=== PATIENT | male | born 1940 | race Caucasian/White ===

== ENCOUNTER 2017-04-11 16:13 | Emergency (ER) | payer OTHER ==
[~2017-04-11] VITALS: Ht 172.7 cm; Wt 90.0 kg
[2017-04-11] MEDS ORDERED: HYDROmorphone 1 MG/ML, 1ML ONE ×2 (16:38→17:26)
[2017-04-11] MEDS ORDERED: ONDANSETRON 2MG/ML, 2ML ONE (16:38)
[2017-04-11] MEDS ORDERED: KETOROLAC 30 MG/1 ML ONE (16:38)
[2017-04-11] MEDS: HYDROmorphone 1 MG/ML, 1ML IVPush PRN ×2 (16:41→17:30)
[2017-04-11] MEDS ORDERED: ALLO300T PO (16:48)
[2017-04-11] MEDS ORDERED: ATEN25TA PO (16:48)
[2017-04-11 16:58] LABS: BLOOD UREA NITROGEN 22 mg/dL (7-18)
[2017-04-11] MEDS ORDERED: SODIUM CHLORIDE FLUSH 10ML SYR IVF ONE (17:00)
[2017-04-11] MEDS ORDERED: SODIUM CHLORIDE 0.9% 1,000ML IVBOLUS ONE (17:00)
[2017-04-11] MEDS ORDERED: KETOROLAC 30 MG/1 ML IVPush ONE (17:00)
[2017-04-11] MEDS ORDERED: ONDANSETRON 2MG/ML, 2ML IVPush ONE (17:00)
[2017-04-11 17:02] LABS: ASPARTATE AMINO TRANSFERASE 21 U/L (15-37)
[2017-04-11] MEDS ORDERED: MORPHINE SULFATE 4 MG/ML, 1ML ONE (18:16)
[2017-04-11] MEDS ORDERED: GADOBUTROL 10 MMOL/10 ML PFS ONE (18:18)
[2017-04-11] MEDS ORDERED: MORPHINE SULFATE 4 MG/ML, 1ML IVPush PRN (18:30)
[2017-04-11 20:49] VITALS: BP 101/59
== END 2017-04-11 20:51 | disposition home or self-care (01) ==
LOC: ED 17:08
DX: M54.16 Radiculopathy, lumbar region (principal)
CPT/HCPCS: 36415; 72158; 74176; 80053; 85025; 96361; 96374; 96375; 96376; 99285; A9585; J1170; J1885; J2405; J7030

== ENCOUNTER → 2017-09-25 | Outpatient (CLI) | payer OTHER ==
[~2017-09-25] MED LIST: ALLO300T PO; ATEN25TA PO; REGADENOSON 0.4 MG/5 ML SYRINGE ONE
== END | disposition home or self-care (01) ==
LOC: CFH 07:07
PROVIDERS: ATTEND Internal Medicine Cardiovascular Disease
DX: I71.4 Abdominal aortic aneurysm, without rupture (principal); I10 Essential (primary) hypertension
CPT/HCPCS: 78452; 93017; 93306; 93978; A9502; J2785

== ENCOUNTER 2017-10-11 10:19 | Day surgery (SDC) | payer OTHER ==
[~2017-10-11] VITALS: Ht 172.7 cm; Wt 96.4 kg
[~2017-10-11 10:19] MED LIST changes: -REGADENOSON 0.4 MG/5 ML SYRINGE ONE
[2017-10-11 11:01] VITALS: BP 116/80
[2017-10-11] MEDS ORDERED: APIX5TAB PO (11:20)
[2017-10-11] MEDS ORDERED: DOXA2TAB9 PO (11:20)
[2017-10-11] MEDS ORDERED: DICL2SOL TP (11:20)
[2017-10-11] MEDS ORDERED: SULF-169 PO (11:20)
[2017-10-11] MEDS ORDERED: VIT1TABL32 PO (11:20)
[2017-10-11 11:21] LABS: ANION GAP 9 mmol/L (5-15); CALCIUM 8.6 mg/dL (8.5-10.1); CHLORIDE 110 mmol/L (98-107)
[2017-10-11] MEDS ORDERED: ATEN25TA PO (12:26)
== END 2017-10-11 14:34 ==
LOC: CACL 10:19
PROVIDERS: ATTEND Internal Medicine Cardiovascular Disease
DX: I48.91 Unspecified atrial fibrillation (principal); I10 Essential (primary) hypertension; E78.5 Hyperlipidemia, unspecified; I25.10 Atherosclerotic heart disease of native coronary artery without angina pectoris; Z79.82 Long term (current) use of aspirin; Z88.6 Allergy status to analgesic agent
CPT/HCPCS: 36415; 80048; 92960

== ENCOUNTER → 2018-03-01 | Outpatient (CLI) | payer OTHER ==
[~2018-03-01] MED LIST changes: +APIX5TAB PO; +ASPI-496 PO; +DICL2SOL TP; +DIGO125T PO; +DOXA2TAB9 PO; +SULF-169 PO; +VIT1TABL32 PO
[2018-03-01 11:51] LABS: INTERNATIONAL NORMALIZED RATIO 1.09 (0.93-1.1); PROTHROMBIN TIME 11.3 Seconds (9.6-11.5)
[2018-03-01 11:56] LABS: ALANINE AMINOTRANSFERASE 27 U/L (12-78); ALBUMIN 3.7 g/dL (3.4-5.0); ANION GAP 8 mmol/L (5-15); CALCIUM 8.4 mg/dL (8.5-10.1); CHLORIDE 110 mmol/L (98-107)
[2018-03-01 11:59] LABS: ALKALINE PHOSPHATASE 61 U/L (45-117)
[2018-03-01 12:10] LABS: BASOPHILS # (AUTO) 0.01 x10^3/uL (0-0.1); BASOPHILS % (AUTO) 0 % (0-1); EOSINOPHILS # (AUTO) 0.06 x10^3/uL (0-0.4); EOSINOPHILS % (AUTO) 1 % (1-7); LYMPHOCYTES # (AUTO) 1.45 x10^3/uL (1-3.4); LYMPHOCYTES % (AUTO) 22 % (22-44); MD NO; MEAN CORPUSCULAR HEMOGLOBIN 30.2 pg (27.5-34.5); MEAN CORPUSCULAR HGB CONC 33.3 g/dL (33.2-36.2); MEAN CORPUSCULAR VOLUME 90.9 fL (81-97); MEAN PLATELET VOLUME 8.8 fL (7.4-10.4); MONOCYTES # (AUTO) 0.55 x10^3/uL (0.2-0.8); MONOCYTES % (AUTO) 8 % (2-9); NEUTROPHILS # (AUTO) 4.66 x10^3/uL (1.8-6.8); NEUTROPHILS % (AUTO) 69 % (42-75); PLATELET COUNT 170 x10^3/uL (130-400); RED BLOOD COUNT 5.56 x10^6/uL (4.38-5.82); RED CELL DISTRIBUTION WIDTH 15.5 % (9.4-14.8)
== END ==
LOC: STAR 10:34
PROVIDERS: ATTEND Internal Medicine Cardiovascular Disease
DX: Z01.818 Encounter for other preprocedural examination (principal)
CPT/HCPCS: 36415; 71046; 80053; 85025; 85610

== ENCOUNTER 2018-03-06 08:31 | Observation (INO) | payer OTHER ==
[2018-03-01 11:10] VITALS: BP 130/85
[~2018-03-06] VITALS: Ht 172.7 cm; Wt 97.2 kg
[2018-03-06] MEDS ORDERED: LIDOCAINE/PF 1%, 30ML ONE (08:58)
[2018-03-06] MEDS ORDERED: MIDAZOLAM 1 MG/ML, 5ML ONE (08:58)
[2018-03-06] MEDS ORDERED: FENTANYL PF 100 MCG/2ML ONE (08:58)
[2018-03-06] MEDS ORDERED: CEFAZOLIN PMX 1GM/50ML 50 ML ONE (08:58)
[2018-03-06] MEDS ORDERED: CEFAZOLIN 1,000 MG ONE (08:58)
[2018-03-06] MEDS ORDERED: SODIUM CHLORIDE 0.9% 1,000 ML IV SCH (09:06)
[2018-03-06] MEDS ORDERED: SULF1TAB24 PO (09:20)
[2018-03-06] MEDS ORDERED: CEFAZOLIN PMX 1GM/50ML 50 ML IVPB ONE (09:30)
[2018-03-06] MEDS ORDERED: ACETAMINOPHEN 325 MG TABLET PO PRN (10:30)
[2018-03-06 10:58] VITALS: BP 118/75
[2018-03-06 14:00] VITALS: BP 118/83
[2018-03-06] MEDS ORDERED: CEFAZOLIN PMX 1GM/50ML 50 ML IVPB SCH (15:00)
[2018-03-06] MEDS: OXYcodone IR 5MG TABLET PO PRN (18:07)
[2018-03-06 19:37] VITALS: BP 136/78
[2018-03-06] MEDS: ATENOLOL 25 MG TABLET PO SCH (21:44)
[2018-03-06] MEDS: SODIUM CHLORIDE FLUSH 10ML SYR IVF SCH (21:44)
[2018-03-06 23:57] VITALS: BP 139/84
[2018-03-07] MEDS: OXYcodone IR 5MG TABLET PO PRN (00:39)
[2018-03-07] MEDS ORDERED: CEFAZOLIN 1,000 MG in SODIUM CHLORIDE 0.9% 50 ML IVPB SCH (01:00)
[2018-03-07 07:47] VITALS: BP 156/83
[2018-03-07] MEDS ORDERED: TEMPLATE NON-FORMULARY MED. (Vit A,C & E/Lutein/Minerals** (Ocuvite Tablet**) 1 TAB) PO SCH (09:00)
[2018-03-07] MEDS ORDERED: ASPIRIN 81 MG TABLET EC PO SCH (09:00)
[2018-03-07] MEDS ORDERED: DOXAZOSIN 2MG TABLET PO SCH (09:00)
[2018-03-07] MEDS ORDERED: ALLOPURINOL 300 MG TABLET PO SCH (09:00)
[2018-03-07] MEDS ORDERED: SULFAMETH./TRIMETHOPRIM DS 800MG/160MG TABLET PO SCH (09:00)
[2018-03-07] MEDS ORDERED: DIGOXIN 0.125 MG TABLET PO SCH (09:00)
[2018-03-07] MEDS: ATENOLOL 25 MG TABLET PO SCH (09:04)
[2018-03-07] MEDS: SODIUM CHLORIDE FLUSH 10ML SYR IVF SCH (09:04)
== END 2018-03-07 10:40 | disposition home or self-care (01) ==
LOC: CACL 08:31 → ORIP 10:22 → 5SO 10:46 → DCLOUNGE 03-07 10:20
PROVIDERS: ADMIT Internal Medicine Cardiovascular Disease; ATTEND Internal Medicine Cardiovascular Disease
DX: I49.5 Sick sinus syndrome (principal); I48.91 Unspecified atrial fibrillation; I10 Essential (primary) hypertension; E78.5 Hyperlipidemia, unspecified
CPT/HCPCS: 33207; 71045; 96365; 96375; 99156; C1779; C1786; G0378; J0690; J2250; J3010; J3490

== ENCOUNTER 2018-05-24 05:59 | Observation (INO) | payer OTHER ==
[2018-05-23 10:34] VITALS: BP 122/78
[2018-05-23 11:03] LABS: BASOPHILS # (AUTO) 0.02 x10^3/uL (0-0.1); BASOPHILS % (AUTO) 0 % (0-1); EOSINOPHILS # (AUTO) 0.11 x10^3/uL (0-0.4); EOSINOPHILS % (AUTO) 2 % (1-7); LYMPHOCYTES % (AUTO) 21 % (22-44); MD NO; MEAN CORPUSCULAR HEMOGLOBIN 30.3 pg (27.5-34.5); MEAN PLATELET VOLUME 8.3 fL (7.4-10.4); MONOCYTES # (AUTO) 0.74 x10^3/uL (0.2-0.8); MONOCYTES % (AUTO) 10 % (2-9); NEUTROPHILS # (AUTO) 5.07 x10^3/uL (1.8-6.8); NEUTROPHILS % (AUTO) 67 % (42-75); PLATELET COUNT 160 x10^3/uL (130-400); RED BLOOD COUNT 5.43 x10^6/uL (4.38-5.82); RED CELL DISTRIBUTION WIDTH 15.9 % (9.4-14.8)
[2018-05-23 11:08] LABS: ANION GAP 8 mmol/L (5-15); CALCIUM 8.6 mg/dL (8.5-10.1); CHLORIDE 111 mmol/L (98-107); CREATININE 1.25 mg/dL (0.7-1.3)
[~2018-05-24] VITALS: Ht 172.7 cm; Wt 98.5 kg
[~2018-05-24 05:59] MED LIST changes: +METO50TA4 PO; +SULF1TAB24 PO
[2018-05-24] MEDS ORDERED: SODIUM CHLORIDE 0.9% 1,000 ML IV SCH (06:07)
[2018-05-24] MEDS ORDERED: TIZA4CAP PO (06:28)
[2018-05-24] MEDS ORDERED: ZOLPIDEM 5MG TABLET PO PRN ×2 (06:30→10:00)
[2018-05-24] MEDS ORDERED: ONDANSETRON 2MG/ML, 2ML IVPush PRN (06:30)
[2018-05-24] MEDS ORDERED: MIDAZOLAM 1 MG/ML, 5ML ONE (07:52)
[2018-05-24] MEDS ORDERED: LIDOCAINE 2%, 50ML ONE (07:52)
[2018-05-24] MEDS ORDERED: FENTANYL PF 100 MCG/2ML ONE (07:52)
[2018-05-24] MEDS ORDERED: TIZANIDINE 4MG TABLET PO PRN (10:00)
[2018-05-24] MEDS ORDERED: ACETAMINOPHEN 325 MG TABLET PO PRN (10:00)
[2018-05-24 10:08] VITALS: BP 123/85
[2018-05-24] MEDS ORDERED: ETODOLAC 200 MG CAPSULE PO PRN (10:30)
[2018-05-24] MEDS ORDERED: ETOD-95 PO (10:31)
[2018-05-24 14:25] VITALS: BP 122/86
[2018-05-24 19:01] VITALS: BP 112/76
[2018-05-24] MEDS: METOPROLOL SUCCINATE 50 MG TAB.ER.24H PO SCH (20:07)
[2018-05-24] MEDS ORDERED: DOXAZOSIN 2MG TABLET PO SCH (21:00)
[2018-05-25 01:16] VITALS: BP 122/81
[2018-05-25 07:49] VITALS: BP 133/92
[2018-05-25] MEDS: METOPROLOL SUCCINATE 50 MG TAB.ER.24H PO SCH (07:57)
[2018-05-25] MEDS ORDERED: METO50TA4 PO (08:50)
[2018-05-25] MEDS ORDERED: MULTIVITAMINS/MINERALS TABLET PO SCH (09:00)
[2018-05-25] MEDS ORDERED: DIGOXIN 0.125 MG TABLET PO SCH (09:00)
[2018-05-25] MEDS ORDERED: SULFAMETH./TRIMETHOPRIM DS 800MG/160MG TABLET PO SCH (09:00)
[2018-05-25] MEDS ORDERED: ASPIRIN 81 MG TABLET EC PO SCH (09:00)
[2018-05-25] MEDS ORDERED: ALLOPURINOL 300 MG TABLET PO SCH (09:00)
== END 2018-05-25 13:09 | disposition home or self-care (01) ==
LOC: CACL 05:59 → 5SO 09:56
PROVIDERS: ADMIT Internal Medicine Cardiovascular Disease; ATTEND Internal Medicine Cardiovascular Disease
DX: I48.0 Paroxysmal atrial fibrillation (principal); I44.2 Atrioventricular block, complete; I10 Essential (primary) hypertension; Z95.0 Presence of cardiac pacemaker
CPT/HCPCS: 36415; 71046; 80048; 85025; 93650; 99156; 99157; C1766; C1894; C2630; G0378; J2250; J3010

== ENCOUNTER 2018-07-07 22:47 | Inpatient (IN) | payer OTHER ==
[~2018-07-07] VITALS: Ht 172.7 cm; Wt 100.3 kg
[~2018-07-07 22:47] MED LIST changes: +ETOD-95 PO; +TIZA4CAP PO
[2018-07-07 23:18] LABS: BASOPHILS # (AUTO) 0.13 x10^3/uL (0-0.1); BASOPHILS % (AUTO) 2 % (0-1); EOSINOPHILS # (AUTO) 0.15 x10^3/uL (0-0.4); EOSINOPHILS % (AUTO) 2 % (1-7); LYMPHOCYTES # (AUTO) 2.19 x10^3/uL (1-3.4); LYMPHOCYTES % (AUTO) 28 % (22-44); MD NO; MEAN CORPUSCULAR HEMOGLOBIN 30.1 pg (27.5-34.5); MEAN CORPUSCULAR HGB CONC 33.3 g/dL (33.2-36.2); MEAN CORPUSCULAR VOLUME 90.5 fL (81-97); MEAN PLATELET VOLUME 8.7 fL (7.4-10.4); MONOCYTES # (AUTO) 0.72 x10^3/uL (0.2-0.8); MONOCYTES % (AUTO) 9 % (2-9); NEUTROPHILS # (AUTO) 4.63 x10^3/uL (1.8-6.8); NEUTROPHILS % (AUTO) 59 % (42-75); PLATELET COUNT 207 x10^3/uL (130-400); RED BLOOD COUNT 5.56 x10^6/uL (4.38-5.82); RED CELL DISTRIBUTION WIDTH 15.3 % (9.4-14.8)
[2018-07-07 23:28] LABS: ALANINE AMINOTRANSFERASE 30 U/L (12-78); ALBUMIN 3.6 g/dL (3.4-5.0); ANION GAP 9 mmol/L (5-15); CALCIUM 8.5 mg/dL (8.5-10.1); CHLORIDE 111 mmol/L (98-107); CREATININE 1.66 mg/dL (0.7-1.3)
[2018-07-07] MEDS ORDERED: SODIUM CHLORIDE FLUSH 10ML SYR IVF ONE (23:30)
[2018-07-07 23:32] LABS: ALKALINE PHOSPHATASE 64 U/L (45-117); BILIRUBIN,TOTAL 0.6 mg/dL (0.2-1.0); TOTAL PROTEIN 6.9 g/dL (6.4-8.2)
[2018-07-07 23:33] LABS: INTERNATIONAL NORMALIZED RATIO 1.11 (0.93-1.1); PROTHROMBIN TIME 11.4 Seconds (9.6-11.5)
[2018-07-07 23:34] LABS: TROPONIN I 0.359 ng/mL (0.000-0.045)
[2018-07-07] MEDS ORDERED: SODIUM CHLORIDE 0.9% 1,000 ML IV ONE (23:36)
[2018-07-07] MEDS ORDERED: HEPARIN 25,000 UNITS/500ML PMX 500 ML IV PRN (23:45)
[2018-07-07] MEDS ORDERED: HEPARIN 5,000 UNITS/ML, 1ML IV ONE (23:45)
[2018-07-07] MEDS ORDERED: NITROGLYCERIN SINGLE TAB 0.4 MG SL ONE (23:50)
[2018-07-07] MEDS ORDERED: MORPHINE SULFATE 4 MG/ML, 1ML ONE (23:51)
[2018-07-07] MEDS ORDERED: ASPIRIN 81 MG TABLET EC ONE (23:51)
[2018-07-07] MEDS ORDERED: HEPARIN 5,000 UNITS/ML, 1ML ONE (23:57)
[2018-07-08] MEDS ORDERED: SODIUM CHLORIDE 0.9% 1,000ML IVBOLUS ONE
[2018-07-08] MEDS ORDERED: NITROGLYCERIN SINGLE TAB 0.4 MG SL PRN
[2018-07-08] MEDS ORDERED: ASPIRIN 81 MG TABLET CHEW PO ONE
[2018-07-08] MEDS ORDERED: HEPARIN 25,000 UNITS/500ML PMX 500 ML ONE
[2018-07-08] MEDS ORDERED: MORPHINE SULFATE 4 MG/ML, 1ML IVPush PRN
[2018-07-08] MEDS ORDERED: OMNIPAQUE 350 MG/ML, 100ML BOTTLE ONE (00:01)
[2018-07-08] MEDS ORDERED: ONDANSETRON ODT 4 MG ONE (00:04)
[2018-07-08] MEDS ORDERED: ASPIRIN 81 MG TABLET CHEW ONE (00:07)
[2018-07-08] MEDS ORDERED: DOCUSATE 100 MG CAPSULE PO PRN (00:30)
[2018-07-08] MEDS ORDERED: TEMAZEPAM 15 MG CAPSULE PO PRN (00:30)
[2018-07-08] MEDS ORDERED: hydrALAzine 20 MG/ML, 1ML IVPush PRN (00:30)
[2018-07-08] MEDS ORDERED: ETODOLAC 200 MG CAPSULE PO PRN (00:30)
[2018-07-08] MEDS ORDERED: TIZANIDINE 2MG TABLET PO PRN (00:30)
[2018-07-08] MEDS ORDERED: ONDANSETRON ODT 4 MG PO ONE (00:30)
[2018-07-08] MEDS ORDERED: morphine SULFATE 10 MG/ML, 1ML IVPush PRN (00:30)
[2018-07-08] MEDS ORDERED: ONDANSETRON ODT 4 MG PO PRN (00:30)
[2018-07-08] MEDS ORDERED: HEPARIN 5,000 UNITS/ML, 1ML IV PRN (01:30)
[2018-07-08 01:34] VITALS: BP 133/90
[2018-07-08] MEDS ORDERED: METO50TA4 PO (01:46)
[2018-07-08 07:06] VITALS: BP 130/84
[2018-07-08] MEDS ORDERED: SODIUM CHLORIDE 0.45% 1,000 ML IV SCH (08:30)
[2018-07-08] MEDS: ALLOPURINOL 300 MG TABLET PO SCH (09:02)
[2018-07-08] MEDS: MULTIVITAMIN 1 TABLET PO SCH (09:03)
[2018-07-08] MEDS: ASPIRIN 81 MG TABLET CHEW PO SCH (09:03)
[2018-07-08] MEDS: METOPROLOL SUCCINATE 50 MG TAB.ER.24H PO SCH (09:04)
[2018-07-08] MEDS: SULFAMETH./TRIMETHOPRIM DS 800MG/160MG TABLET PO SCH (09:04)
[2018-07-08] MEDS ORDERED: NITROGLYCERIN 0.4 MG BOTTLE (25 TABS) SL PRN (09:30)
[2018-07-08 12:19] LABS: TROPONIN I 0.196 ng/mL (0.000-0.045)
[2018-07-08] MEDS ORDERED: HEPARIN 1,000 UNITS/ML, 10ML ONE (13:22)
[2018-07-08] MEDS ORDERED: FENTANYL PF 100 MCG/2ML ONE (13:22)
[2018-07-08] MEDS ORDERED: LIDOCAINE-MPF 2%, 2ML ONE (13:22)
[2018-07-08] MEDS ORDERED: MIDAZOLAM 1 MG/ML, 5ML ONE (13:22)
[2018-07-08] MEDS ORDERED: VERAPAMIL 2.5 MG/ML, 2ML ONE (13:22)
[2018-07-08] MEDS ORDERED: SODIUM CHLORIDE 0.9% 1,000 ML IV SCH (13:58)
[2018-07-08 15:17] VITALS: BP 109/69
[2018-07-08 15:19] VITALS: BP 122/67
[2018-07-08 19:00] VITALS: BP 131/80
[2018-07-08] MEDS ORDERED: DOXAZOSIN 2MG TABLET PO SCH (21:00)
[2018-07-09 02:52] VITALS: BP 132/69
[2018-07-09 05:23] LABS: ALBUMIN 3.3 g/dL (3.4-5.0); ANION GAP 9 mmol/L (5-15); CALCIUM 8.4 mg/dL (8.5-10.1); CHLORIDE 106 mmol/L (98-107); CREATININE 1.15 mg/dL (0.7-1.3)
[2018-07-09 07:04] VITALS: BP 129/70
[2018-07-09] MEDS: ASPIRIN 81 MG TABLET CHEW PO SCH (09:07)
[2018-07-09] MEDS: SULFAMETH./TRIMETHOPRIM DS 800MG/160MG TABLET PO SCH (09:08)
[2018-07-09] MEDS: ALLOPURINOL 300 MG TABLET PO SCH (09:08)
[2018-07-09] MEDS: METOPROLOL SUCCINATE 50 MG TAB.ER.24H PO SCH (09:08)
[2018-07-09] MEDS: MULTIVITAMIN 1 TABLET PO SCH (09:08)
[2018-07-09] MEDS ORDERED: ACID1TAB7 PO (11:22)
[2018-07-09] MEDS ORDERED: NITR0.4T28 SL (13:02)
[2018-07-09] MEDS ORDERED: ATOR40TA78 PO (13:19)
[2018-07-09] MEDS ORDERED: METOPROLOL TARTRATE 50 MG TABLET PO SCH (18:00)
[2018-07-09] MEDS ORDERED: ATORVASTATIN 40 MG TABLET PO SCH (21:00)
== END 2018-07-09 13:55 | disposition home health service (06) | DRG 280 ==
LOC: EDIP 07-08 00:07 → ED 07-08 00:32 → 5SO 07-08 01:17 → DCLOUNGE 07-09 13:41
PROVIDERS: ADMIT Internal Medicine; ATTEND Internal Medicine
PROC: 4A023N7 Measurement of Cardiac Sampling and Pressure, Left Heart, Percutaneous Approach (ICD-10-PCS; principal; 2018-07-08)
PROC: B2111ZZ Fluoroscopy of Multiple Coronary Arteries using Low Osmolar Contrast (ICD-10-PCS; 2018-07-08)
DX: I21.4 Non-ST elevation (NSTEMI) myocardial infarction (principal); N17.0 Acute kidney failure with tubular necrosis; I50.23 Acute on chronic systolic (congestive) heart failure; D68.69 Other thrombophilia; I31.3 Pericardial effusion (noninflammatory); I48.92 Unspecified atrial flutter; M48.54XA Collapsed vertebra, not elsewhere classified, thoracic region, initial encounter for fracture; E78.5 Hyperlipidemia, unspecified; H35.30 Unspecified macular degeneration; I11.0 Hypertensive heart disease with heart failure; I25.10 Atherosclerotic heart disease of native coronary artery without angina pectoris; I48.2 Chronic atrial fibrillation; K80.20 Calculus of gallbladder without cholecystitis without obstruction; N28.1 Cyst of kidney, acquired; M10.9 Gout, unspecified; M19.90 Unspecified osteoarthritis, unspecified site; G89.29 Other chronic pain; Z87.891 Personal history of nicotine dependence; Z88.8 Allergy status to other drugs, medicaments and biological substances; Z96.659 Presence of unspecified artificial knee joint; Z95.0 Presence of cardiac pacemaker
CPT/HCPCS: 36415; 71045; 71275; 80048; 80053; 82040; 83880; 84484; 85025; 85520; 85610; 85730; 93005; 93306; 93454; 96374; 96375; 99156; 99157; C1769; C1894; G0378; J1644; J2250; J3010; J3490; Q0162; Q9967; J2270; J7030

== ENCOUNTER 2019-08-01 09:50 | Inpatient (IN) | payer MEDICARE, OTHER ==
[2019-07-24 15:01] LABS: BASOPHILS # (AUTO) 0.01 x10^3/uL (0-0.1); BASOPHILS % (AUTO) 0 % (0-1); EOSINOPHILS # (AUTO) 0.11 x10^3/uL (0-0.4); EOSINOPHILS % (AUTO) 2 % (1-7); LYMPHOCYTES # (AUTO) 1.43 x10^3/uL (1-3.4); LYMPHOCYTES % (AUTO) 21 % (22-44); MD NO; MEAN CORPUSCULAR HEMOGLOBIN 30.8 pg (27.5-34.5); MEAN CORPUSCULAR HGB CONC 33.4 g/dL (33.2-36.2); MEAN CORPUSCULAR VOLUME 92.2 fL (81-97); MEAN PLATELET VOLUME 8.7 fL (7.4-10.4); MONOCYTES # (AUTO) 0.62 x10^3/uL (0.2-0.8); MONOCYTES % (AUTO) 9 % (2-9); NEUTROPHILS # (AUTO) 4.75 x10^3/uL (1.8-6.8); NEUTROPHILS % (AUTO) 69 % (42-75); PLATELET COUNT 183 x10^3/uL (130-400); RED BLOOD COUNT 5.46 x10^6/uL (4.38-5.82); RED CELL DISTRIBUTION WIDTH 15.4 % (9.4-14.8)
[2019-07-24 15:02] LABS: HCT (SEDRATE) 50.7 % (39.2-51.8)
[2019-07-24 15:09] LABS: INTERNATIONAL NORMALIZED RATIO 1.1 (0.93-1.1); PROTHROMBIN TIME 11.5 Seconds (9.6-11.5)
[2019-07-24 15:12] LABS: ANION GAP 8 mmol/L (5-15); CALCIUM 8.9 mg/dL (8.5-10.1); CHLORIDE 112 mmol/L (98-107)
[2019-07-24 15:37] LABS: HEMOGLOBIN A1C 5.8 % (4.2-6.3)
[~2019-08-01] VITALS: Ht 172.7 cm; Wt 98.7 kg
[~2019-08-01 09:50] MED LIST changes: +ACID1TAB7 PO; +ALBU18HF INH; +ATOR40TA78 PO; +MULT-658 PO; +NITR0.4T28 SL; +inhaler
[2019-08-01] MEDS ORDERED: VANCOMYCIN PMX 1GM/200ML 200 ML IV ONE (10:18)
[2019-08-01] MEDS ORDERED: LACTATED RINGERS 1,000 ML IV SCH (10:40)
[2019-08-01] MEDS ORDERED: GABAPENTIN 300 MG CAPSULE PO ONE (10:45)
[2019-08-01 11:00] VITALS: BP 136/88
[2019-08-01] MEDS ORDERED: FENTANYL PF 250 MCG/5ML ONE (11:54)
[2019-08-01] MEDS ORDERED: MIDAZOLAM 1 MG/ML, 2ML ONE (11:54)
[2019-08-01] MEDS ORDERED: LIDOCAINE GEL 2%, 5ML ONE (12:18)
[2019-08-01] MEDS ORDERED: TRANEXAMIC ACID 100 MG/ML, 10ML ONE (12:27)
[2019-08-01] MEDS ORDERED: KETOROLAC 60 MG/2 ML ONE (12:27)
[2019-08-01] MEDS ORDERED: ROPivacaine/PF 0.2%, 10 ML ONE (12:28)
[2019-08-01] MEDS ORDERED: VANCOMYCIN 1,000 MG ONE (12:28)
[2019-08-01] MEDS ORDERED: EPINEPHRINE 1 MG/ML, 1ML ONE (12:28)
[2019-08-01] MEDS ORDERED: MORPHINE SULFATE 4 MG/ML, 1ML ONE ×2 (12:28→17:47)
[2019-08-01] MEDS ORDERED: SODIUM CHLORIDE 0.9% 50 ML ONE (12:28)
[2019-08-01] MEDS ORDERED: ROCURONIUM 10 MG/ML,10ML ONE (12:45)
[2019-08-01] MEDS ORDERED: PHENYLEPHRINE 10 MG/ML ONE (12:45)
[2019-08-01] MEDS ORDERED: SUCCINYLCHOLINE 20 MG/ML, 10ML ONE (12:45)
[2019-08-01] MEDS ORDERED: MIDAZOLAM 1 MG/ML, 2ML IV PRN (13:30)
[2019-08-01] MEDS ORDERED: MEPERIDINE/PF 25MG/ML,1ML IVPush PRN (13:30)
[2019-08-01] MEDS ORDERED: HYDROmorphone 2 MG/ML, 1ML IVPush PRN (13:30)
[2019-08-01] MEDS ORDERED: METOPROLOL 1 MG/ML, 5ML IV PRN (13:30)
[2019-08-01] MEDS ORDERED: ALBUTEROL/IPRATROPIUM 2.5MG/0.5MG, 3 ML NPPB PRN (13:30)
[2019-08-01] MEDS ORDERED: OXYcodone 5 MG/5 ML ORAL.SOL UDC PO PRN (13:30)
[2019-08-01] MEDS ORDERED: hydrALAzine 20 MG/ML, 1ML IV PRN (13:30)
[2019-08-01] MEDS ORDERED: PROMETHAZINE 25 MG/ML, 1ML IV PRN (13:30)
[2019-08-01] MEDS ORDERED: DEXAMETHASONE 4 MG/ML, 1ML ONE (15:21)
[2019-08-01] MEDS ORDERED: PROPOFOL 10 MG/ML, 20ML ONE (15:21)
[2019-08-01] MEDS ORDERED: BUPIVACAINE/PF 0.25% ONE (15:21)
[2019-08-01] MEDS ORDERED: CEFAZOLIN 1,000 MG ONE (15:21)
[2019-08-01] MEDS ORDERED: ONDANSETRON 2MG/ML, 2ML ONE (15:21)
[2019-08-01] MEDS ORDERED: TRANEXAMIC ACID 1,500 MG in SODIUM CHLORIDE 0.9% 100 ML IV ONE (16:00)
[2019-08-01] MEDS ORDERED: FENTANYL PF 100 MCG/2ML ONE (16:07)
[2019-08-01] MEDS ORDERED: OXYcodone 5 MG/5 ML ORAL.SOL UDC ONE (16:07)
[2019-08-01] MEDS: FENTANYL PF 100 MCG/2ML IV PRN ×2 (16:16→16:36)
[2019-08-01 17:40] VITALS: BP 147/81
[2019-08-01] MEDS ORDERED: SCOPOLAMINE PATCH, 1.5MG PATCH.TD72 TD PRN (18:00)
[2019-08-01] MEDS ORDERED: ONDANSETRON ODT 4 MG PO PRN (18:00)
[2019-08-01] MEDS ORDERED: MORPHINE SULFATE 4 MG/ML, 1ML IVPush PRN (18:00)
[2019-08-01] MEDS ORDERED: PROMETHAZINE 25 MG/ML, 1ML IM PRN (18:00)
[2019-08-01] MEDS ORDERED: DIPHENHYDRAMINE 25 MG CAPSULE PO PRN (18:00)
[2019-08-01] MEDS ORDERED: DEXAMETHASONE 4 MG/ML, 1ML IVPush PRN (18:00)
[2019-08-01] MEDS ORDERED: METOCLOPRAMIDE 5 MG/ML, 2ML IVPush PRN (18:00)
[2019-08-01] MEDS ORDERED: ONDANSETRON 2MG/ML, 2ML IVPush PRN (18:00)
[2019-08-01] MEDS ORDERED: ZOLPIDEM 5MG TABLET PO PRN (18:00)
[2019-08-01] MEDS ORDERED: METOCLOPRAMIDE 10MG TABLET PO PRN (18:00)
[2019-08-01] MEDS ORDERED: TRANEXAMIC ACID 1,500 MG in SODIUM CHLORIDE 0.9% 100 ML IVPB ONE (18:00)
[2019-08-01] MEDS ORDERED: DIPHENHYDRAMINE 50 MG/ML, 1ML IVPush PRN (18:00)
[2019-08-01] MEDS ORDERED: PROMETHAZINE 25 MG SUPP PR PRN (18:00)
[2019-08-01] MEDS ORDERED: LORazepam 1MG TABLET PO PRN (18:00)
[2019-08-01] MEDS ORDERED: LORazepam 2 MG/ML, 1ML IV PRN (18:00)
[2019-08-01] MEDS: D5%-0.45NACL+KCL 20MEQ 1,000 ML IV SCH (18:27)
[2019-08-01] MEDS ORDERED: ALBUTEROL SULFATE 2.5 MG/3 ML NPPB PRN (18:30)
[2019-08-01 18:53] VITALS: BP 129/86
[2019-08-01] MEDS: DIAZEPAM 5 MG TABLET PO PRN ×2 (19:57→23:40)
[2019-08-01] MEDS: METOPROLOL SUCCINATE 50 MG TAB.ER.24H PO SCH (19:57)
[2019-08-01] MEDS: OXYcodone IR 5MG TABLET PO PRN ×2 (19:58→23:41)
[2019-08-01] MEDS ORDERED: ASPIRIN 325 MG TABLET EC PO SCH (21:00)
[2019-08-01] MEDS: DOXAZOSIN 2MG TABLET PO SCH (21:54)
[2019-08-01] MEDS: CEFAZOLIN PMX 2GM/50ML 50 ML IVPB SCH (23:19)
[2019-08-01 23:44] VITALS: BP 153/87
[2019-08-02 01:37] VITALS: BP 135/85
[2019-08-02] MEDS: D5%-0.45NACL+KCL 20MEQ 1,000 ML IV SCH ×3 (04:00→21:38)
[2019-08-02] MEDS: OXYcodone IR 5MG TABLET PO PRN ×5 (04:05→20:31)
[2019-08-02] MEDS: DIAZEPAM 5 MG TABLET PO PRN ×5 (04:05→20:31)
[2019-08-02] MEDS: ASPIRIN 325 MG TABLET EC PO SCH ×2 (05:57→16:41)
[2019-08-02 06:55] VITALS: BP 100/66
[2019-08-02] MEDS: CEFAZOLIN PMX 2GM/50ML 50 ML IVPB SCH (07:14)
[2019-08-02] MEDS: METOPROLOL SUCCINATE 50 MG TAB.ER.24H PO SCH ×2 (08:32→20:31)
[2019-08-02] MEDS: SULFAMETH./TRIMETHOPRIM DS 800MG/160MG TABLET PO SCH (08:36)
[2019-08-02] MEDS: MULTIVITS,STRESS FORMULA 1 TABLET PO SCH (08:36)
[2019-08-02] MEDS: MULTIVITAMIN 1 TABLET PO SCH (08:36)
[2019-08-02] MEDS: ALLOPURINOL 300 MG TABLET PO SCH (08:36)
[2019-08-02 08:57] LABS: BASOPHILS % (AUTO) 0 % (0-1); EOSINOPHILS # (AUTO) 0.01 x10^3/uL (0-0.4); EOSINOPHILS % (AUTO) 0 % (1-7); LYMPHOCYTES # (AUTO) 0.79 x10^3/uL (1-3.4); LYMPHOCYTES % (AUTO) 6 % (22-44); MD NO; MEAN CORPUSCULAR HGB CONC 32.4 g/dL (33.2-36.2); MEAN CORPUSCULAR VOLUME 92.7 fL (81-97); MEAN PLATELET VOLUME 8.5 fL (7.4-10.4); MONOCYTES # (AUTO) 1.15 x10^3/uL (0.2-0.8); MONOCYTES % (AUTO) 8 % (2-9); NEUTROPHILS # (AUTO) 11.75 x10^3/uL (1.8-6.8); NEUTROPHILS % (AUTO) 86 % (42-75); PLATELET COUNT 161 x10^3/uL (130-400); RED BLOOD COUNT 5.05 x10^6/uL (4.38-5.82); RED CELL DISTRIBUTION WIDTH 15.5 % (9.4-14.8)
[2019-08-02 12:42] VITALS: BP 107/66
[2019-08-02 18:28] VITALS: BP 104/67
[2019-08-02] MEDS: DOXAZOSIN 2MG TABLET PO SCH (20:31)
[2019-08-03 00:19] VITALS: BP 121/79
[2019-08-03] MEDS: OXYcodone IR 5MG TABLET PO PRN ×2 (03:32→14:51)
[2019-08-03] MEDS: DIAZEPAM 5 MG TABLET PO PRN (03:32)
[2019-08-03] MEDS: ASPIRIN 325 MG TABLET EC PO SCH ×2 (05:14→17:16)
[2019-08-03 07:07] VITALS: BP 130/73
[2019-08-03] MEDS: MULTIVITS,STRESS FORMULA 1 TABLET PO SCH (08:40)
[2019-08-03] MEDS: ALLOPURINOL 300 MG TABLET PO SCH (08:41)
[2019-08-03] MEDS: MULTIVITAMIN 1 TABLET PO SCH (08:41)
[2019-08-03] MEDS: METOPROLOL SUCCINATE 50 MG TAB.ER.24H PO SCH ×2 (08:42→20:36)
[2019-08-03] MEDS: D5%-0.45NACL+KCL 20MEQ 1,000 ML IV SCH ×2 (08:42→20:00)
[2019-08-03] MEDS: SULFAMETH./TRIMETHOPRIM DS 800MG/160MG TABLET PO SCH (08:42)
[2019-08-03 08:44] VITALS: BP 112/68
[2019-08-03 09:10] LABS: BASOPHILS # (AUTO) 0.02 x10^3/uL (0-0.1); BASOPHILS % (AUTO) 0 % (0-1); EOSINOPHILS % (AUTO) 0 % (1-7); LYMPHOCYTES # (AUTO) 1.44 x10^3/uL (1-3.4); LYMPHOCYTES % (AUTO) 12 % (22-44); MD NO; MEAN CORPUSCULAR HEMOGLOBIN 30.2 pg (27.5-34.5); MEAN CORPUSCULAR HGB CONC 32.7 g/dL (33.2-36.2); MEAN CORPUSCULAR VOLUME 92.3 fL (81-97); MEAN PLATELET VOLUME 8.6 fL (7.4-10.4); MONOCYTES # (AUTO) 1.02 x10^3/uL (0.2-0.8); MONOCYTES % (AUTO) 8 % (2-9); NEUTROPHILS # (AUTO) 9.75 x10^3/uL (1.8-6.8); NEUTROPHILS % (AUTO) 80 % (42-75); PLATELET COUNT 136 x10^3/uL (130-400); RED BLOOD COUNT 5.04 x10^6/uL (4.38-5.82); RED CELL DISTRIBUTION WIDTH 15.2 % (9.4-14.8)
[2019-08-03 13:20] VITALS: BP 134/72
[2019-08-03] MEDS ORDERED: METOCLOPRAMIDE 10MG TABLET PO PRN (16:00)
[2019-08-03] MEDS ORDERED: METOCLOPRAMIDE 5 MG/ML, 2ML IVPush PRN (16:00)
[2019-08-03 19:24] VITALS: BP 137/86
[2019-08-03] MEDS: DOXAZOSIN 2MG TABLET PO SCH (20:36)
[2019-08-04 00:38] VITALS: BP 113/78
[2019-08-04] MEDS: OXYcodone IR 5MG TABLET PO PRN (03:24)
[2019-08-04 04:51] LABS: BASOPHILS # (AUTO) 0.02 x10^3/uL (0-0.1); BASOPHILS % (AUTO) 0 % (0-1); EOSINOPHILS # (AUTO) 0.04 x10^3/uL (0-0.4); EOSINOPHILS % (AUTO) 0 % (1-7); LYMPHOCYTES # (AUTO) 1.52 x10^3/uL (1-3.4); LYMPHOCYTES % (AUTO) 14 % (22-44); MD NO; MEAN CORPUSCULAR HEMOGLOBIN 30.4 pg (27.5-34.5); MEAN CORPUSCULAR HGB CONC 32.6 g/dL (33.2-36.2); MEAN CORPUSCULAR VOLUME 93.3 fL (81-97); MEAN PLATELET VOLUME 9.2 fL (7.4-10.4); MONOCYTES # (AUTO) 1.14 x10^3/uL (0.2-0.8); MONOCYTES % (AUTO) 11 % (2-9); NEUTROPHILS # (AUTO) 8.12 x10^3/uL (1.8-6.8); NEUTROPHILS % (AUTO) 75 % (42-75); PLATELET COUNT 136 x10^3/uL (130-400); RED BLOOD COUNT 4.59 x10^6/uL (4.38-5.82); RED CELL DISTRIBUTION WIDTH 15.4 % (9.4-14.8)
[2019-08-04] MEDS: ASPIRIN 325 MG TABLET EC PO SCH (05:34)
[2019-08-04] MEDS: D5%-0.45NACL+KCL 20MEQ 1,000 ML IV SCH (05:34)
[2019-08-04 07:00] VITALS: BP 96/62
[2019-08-04] MEDS: MULTIVITAMIN 1 TABLET PO SCH (08:26)
[2019-08-04] MEDS: SULFAMETH./TRIMETHOPRIM DS 800MG/160MG TABLET PO SCH (08:27)
[2019-08-04] MEDS: MULTIVITS,STRESS FORMULA 1 TABLET PO SCH (08:27)
[2019-08-04 08:28] VITALS: BP 113/72
[2019-08-04] MEDS: ALLOPURINOL 300 MG TABLET PO SCH (08:28)
[2019-08-04] MEDS: METOPROLOL SUCCINATE 50 MG TAB.ER.24H PO SCH (08:32)
[2019-08-04] MEDS ORDERED: OXYC5TAB2 PO (09:23)
[2019-08-04] MEDS ORDERED: CEPH-368 PO (09:25)
[2019-08-04] MEDS ORDERED: DIAZ5TAB4 PO (09:25)
[2019-08-04] MEDS ORDERED: ASPI-650 PO (09:26)
[2019-08-04 12:55] VITALS: BP 116/64
== END 2019-08-04 14:09 | disposition home or self-care (01) | DRG 466 ==
LOC: ORIP 10:00 → 4NE 17:27 → DCLOUNGE 08-04 13:55
PROVIDERS: ADMIT Orthopaedic Surgery Orthopaedic Surgery of the Spine; ATTEND Orthopaedic Surgery Orthopaedic Surgery of the Spine
PROC: 0SPC0JZ Removal of Synthetic Substitute from Right Knee Joint, Open Approach (ICD-10-PCS; 2019-08-01)
PROC: 0SRC0J9 Replacement of Right Knee Joint with Synthetic Substitute, Cemented, Open Approach (ICD-10-PCS; 2019-08-01)
PROC: 3E0T3BZ Introduction of Anesthetic Agent into Peripheral Nerves and Plexi, Percutaneous Approach (ICD-10-PCS; principal; 2019-08-01 12:00)
DX: T84.092A Other mechanical complication of internal right knee prosthesis, initial encounter (principal); N17.0 Acute kidney failure with tubular necrosis; Y79.2 Prosthetic and other implants, materials and accessory orthopedic devices associated with adverse incidents; I10 Essential (primary) hypertension; E78.5 Hyperlipidemia, unspecified; Z82.49 Family history of ischemic heart disease and other diseases of the circulatory system; Z95.0 Presence of cardiac pacemaker; I48.0 Paroxysmal atrial fibrillation; I71.4 Abdominal aortic aneurysm, without rupture
CPT/HCPCS: 36415; 80048; 83036; 85025; 85610; 85651; 85730; C1713; G0378; J0171; J0690; J1100; J1885; J2250; J2405; J2704; J2795; J3010; J3370; J3490; C1776; J0330; J2270; J2370; J3480

== ENCOUNTER 2020-03-29 07:33 | Day surgery (SDC) | payer MEDICARE ==
[~2020-03-29] VITALS: Ht 172.7 cm; Wt 99.1 kg
[~2020-03-29 07:33] MED LIST changes: +ASPI-650 PO; +CEPH-368 PO; +DIAZ5TAB4 PO; -DIGO125T PO; +DIGO125T85 PO; +OXYC5TAB2 PO
[2020-03-29] MEDS ORDERED: SODIUM CHLORIDE 0.9% 1,000 ML IV SCH (08:21)
[2020-03-29 08:49] VITALS: BP 109/60
[2020-03-29] MEDS ORDERED: LIDOCAINE 1%, 10ML ONE (09:09)
[2020-03-29] MEDS ORDERED: OMNIPAQUE 300 MG/ML, 10ML VIAL ONE (10:34)
== END 2020-03-29 13:40 | disposition home or self-care (01) ==
LOC: OUT 07:33 → EDSTATUS 09:00 → OUT 13:40
PROVIDERS: ATTEND Orthopaedic Surgery Orthopaedic Surgery of the Spine
DX: M54.2 Cervicalgia (principal); M48.02 Spinal stenosis, cervical region; Z79.899 Other long term (current) drug therapy; Z88.8 Allergy status to other drugs, medicaments and biological substances; Z95.0 Presence of cardiac pacemaker; Z98.1 Arthrodesis status
CPT/HCPCS: 62284; 72126; J7030; Q9967

== ENCOUNTER 2020-04-21 08:07 | Outpatient (CLI) | payer MEDICARE ==
[~2020-04-21 08:07] MED LIST changes: +REGADENOSON 0.4 MG/5 ML SYRINGE ONE
== END 2020-04-21 23:59 | disposition home or self-care (01) ==
LOC: CFH 08:07
PROVIDERS: ATTEND Nurse Practitioner Family
DX: I48.0 Paroxysmal atrial fibrillation (principal); R06.00 Dyspnea, unspecified; Z95.0 Presence of cardiac pacemaker
CPT/HCPCS: 78452; 93017; A9502; J2785

== ENCOUNTER 2020-05-02 09:59 | Emergency (ER) | payer MEDICARE ==
[~2020-05-02] VITALS: Ht 172.7 cm; Wt 95.3 kg
[~2020-05-02 09:59] MED LIST changes: -REGADENOSON 0.4 MG/5 ML SYRINGE ONE
--- NOTE | 2020-05-02 10:29 | NUR ---
Pt brought back from triage with chief complaint of left chest wall pain after GLF this morning. Pt denies n/v, neck pain, or respiratory symptoms.
--- NOTE | 2020-05-02 11:18 | NUR ---
Pt resting in bed, IS education provided.
--- NOTE | 2020-05-02 12:10 | NUR ---
LAWRENCE Vilchism at beside to discuss POC.
--- NOTE | 2020-05-02 12:20 | NUR ---
IS and DC education provided.
[2020-05-02 12:22] VITALS: BP 109/79
== END 2020-05-02 12:43 | disposition home or self-care (01) ==
LOC: ED 11:52
DX: S20.212A Contusion of left front wall of thorax, initial encounter (principal); I48.91 Unspecified atrial fibrillation; I11.0 Hypertensive heart disease with heart failure; I50.9 Heart failure, unspecified; I25.2 Old myocardial infarction; J44.9 Chronic obstructive pulmonary disease, unspecified; W01.0XXA Fall on same level from slipping, tripping and stumbling without subsequent striking against object, initial encounter; Y93.89 Activity, other specified; Y92.89 Other specified places as the place of occurrence of the external cause; Y99.8 Other external cause status; I48.92 Unspecified atrial flutter
CPT/HCPCS: 93005; 99283

== ENCOUNTER → 2020-08-19 | Outpatient (CLI) | payer MEDICARE | END | disposition home or self-care (01) | LOC: CVU 13:53 | PROVIDERS: ATTEND Internal Medicine Cardiovascular Disease | DX: I08.3 Combined rheumatic disorders of mitral, aortic and tricuspid valves (principal); I71.4 Abdominal aortic aneurysm, without rupture; R06.00 Dyspnea, unspecified; I70.203 Unspecified atherosclerosis of native arteries of extremities, bilateral legs | CPT/HCPCS: 93306; 93978 ==

== ENCOUNTER → 2020-08-23 | Outpatient (CLI) | payer MEDICARE | END | disposition home or self-care (01) | LOC: RAD 12:55 | PROVIDERS: ATTEND Nurse Practitioner Family | DX: I51.7 Cardiomegaly (principal); I48.0 Paroxysmal atrial fibrillation; I42.9 Cardiomyopathy, unspecified; I49.3 Ventricular premature depolarization; I71.4 Abdominal aortic aneurysm, without rupture; G47.33 Obstructive sleep apnea (adult) (pediatric); I48.91 Unspecified atrial fibrillation; Z95.0 Presence of cardiac pacemaker | CPT/HCPCS: 71046 ==

== ENCOUNTER 2021-05-03 20:05 | Emergency (ER) | payer MEDICARE ==
[~2021-05-03] VITALS: Ht 172.7 cm; Wt 102.6 kg
[~2021-05-03 20:05] MED LIST changes: +ASPI-1026 PO; -ASPI-650 PO; +ETOD300C27 PO; +SULF-23 PO; -SULF1TAB24 PO
--- NOTE | 2021-05-03 20:29 | NUR ---
PT PRESENTS TO ER WITH , PT HERE FOR SOB FOR 2 DAYS WITH TODAY BEING MORE SEVERE, PT HAD SURGERY ON HIS NECK 2 DAYS AGO AND SINCE THEN PT STATES HE HAS BEEN SOB AND HAS BEEN HAVING SEVERE LEFT ARM PAIN, PT NAD AT THIS TIME WITH OXYGEN SATURATION AT 94%
[2021-05-03 21:10] LABS: BASOPHILS % (AUTO) 0 % (0-1); EOSINOPHILS % (AUTO) 0 % (1-7); LYMPHOCYTES % (AUTO) 10 % (22-44); MEAN CORPUSCULAR HEMOGLOBIN 31.3 pg (27.5-34.5); MEAN CORPUSCULAR HGB CONC 33.1 g/dL (33.2-36.2); MEAN PLATELET VOLUME 8.9 fL (7.4-10.4); MONOCYTES % (AUTO) 6 % (2-9); NEUTROPHILS % (AUTO) 84 % (42-75); PLATELET COUNT 181 x10^3/uL (130-400); RED BLOOD COUNT 5.01 x10^6/uL (4.38-5.82)
[2021-05-03 21:20] LABS: ANION GAP 3 mmol/L (5-15); CALCIUM 8.9 mg/dL (8.5-10.1); CHLORIDE 107 mmol/L (98-107); CREATININE 1.14 mg/dL (0.7-1.3)
[2021-05-03] MEDS ORDERED: MORPHINE SULFATE 4 MG/ML, 1ML ONE ×2 (21:25→22:55)
[2021-05-03] MEDS ORDERED: ONDANSETRON 2MG/ML, 2ML ONE (21:25)
[2021-05-03] MEDS ORDERED: SODIUM CHLORIDE FLUSH 10ML SYR IVF ONE (21:30)
[2021-05-03] MEDS ORDERED: ONDANSETRON 2MG/ML, 2ML IVPush ONE (21:30)
[2021-05-03] MEDS: MORPHINE SULFATE 4 MG/ML, 1ML IVPush PRN ×2 (21:45→23:02)
[2021-05-03 22:01] LABS: TROPONIN I 0.026 ng/mL (0.000-0.045)
--- NOTE | 2021-05-03 22:20 | NUR ---
PT TO CT
[2021-05-03] MEDS ORDERED: OMNIPAQUE 350 MG/ML, 150 ML BOTTLE ONE (22:51)
--- NOTE | 2021-05-03 23:00 | NUR ---
PT SITTING UP IN BED, PT A/OX3, PT STARTED ON 2LPM NASAL CANULA OXYGEN BECAUSE PTS OXYGEN SATURATION BEGAN TO FLUCTUATE, PT COMPLAINING OF PAIN, THIS RN TO ADMINISTER SECOND DOSE OF MORPHINE, AT BEDSIDE
--- NOTE | 2021-05-04 00:56 | NUR ---
MD SPOKE WITH PT ABOUT BEING ADMITTED FOR OBSERVATION BUT PT WANTED TO GO HOME INSTEAD, VSS, PT IN NAD
[2021-05-04 00:57] VITALS: BP 147/80
== END 2021-05-04 01:00 | disposition home or self-care (01) ==
LOC: ED 21:20
DX: R06.00 Dyspnea, unspecified (principal); I11.0 Hypertensive heart disease with heart failure; I50.9 Heart failure, unspecified; I48.91 Unspecified atrial fibrillation; I25.2 Old myocardial infarction; J44.9 Chronic obstructive pulmonary disease, unspecified; Z87.891 Personal history of nicotine dependence
CPT/HCPCS: 36415; 70491; 71045; 71275; 80048; 83880; 84484; 85025; 93005; 96374; 96375; 96376; 99285; J2270; J2405; Q9967